=== PATIENT | male | born 1950 | race Caucasian/White ===

== ENCOUNTER 2019-01-10 02:35 | Outpatient (CLI) | payer MEDICARE, OTHER, SELFPAY ==
[2019-01-10 11:24] LABS: Anion Gap 9.6 mmol/L (3-11); BUN 15 mg/dL (7-18); CO2 26.4 mmol/L (21.0-32.0); CREATININE 0.92 mg/dL (0.70-1.30); Calcium 9.1 mg/dL (8.5-10.1); Chloride 105 mmol/L (98-107); Cholesterol 238 mg/dL (50-200); Glucose 95 mg/dL (70-100); HDL Cholesterol 51 mg/dL (40-60); LDL CHOLESTEROL 149 mg/dL (<100); Potassium 4.4 mmol/L (3.5-5.1); Sodium 141 mmol/L (136-145); Triglyceride 181 mg/dL (30-150)
== END 2019-01-10 02:55 ==
PROVIDERS: PCP Family Medicine; Visit Provider Family Medicine
DX: E78.89 Other lipoprotein metabolism disorders; Z00.00 Encounter for general adult medical examination without abnormal findings
CPT/HCPCS: 36415; 80048; 80061; 83721

== ENCOUNTER 2019-01-24 10:23 | Outpatient (CLI) | payer MEDICARE, OTHER, SELFPAY ==
--- NOTE | 2019-01-24 10:10 | DI.RAD_ITS ---
SYMPTOMS/DIAGNOSIS: PAIN POSTERIOR TO HIP LUMBAR SPINE: AP and lateral projections are provided. There is some straightening of the normal lumbar lordosis. The vertebral bodies appear intact. There is some narrowing of the L 2 - 3, L 3 - 4 and L 4 - 5 disc interspace. Mild associated degenerative bony changes are apparent. The pedicle, spinous and transverse processes are intact. The sacrum and sacroiliac joints are well maintained. SUMMARY: Findings consistent with degenerative disc disease and DJD.
== END 2019-01-24 10:43 ==
PROVIDERS: PCP Family Medicine; Referring Provider Family Medicine; Visit Provider Orthopaedic Surgery
DX: M79.604 Pain in right leg (principal); M51.17 Intervertebral disc disorders with radiculopathy, lumbosacral region; M54.9 Dorsalgia, unspecified
CPT/HCPCS: 99212; 99213; 72100

== ENCOUNTER 2020-09-28 02:48 | Outpatient (CLI) | payer MEDICARE, OTHER, SELFPAY ==
[2020-09-28 13:16] LABS: Calculated LDL 174 mg/dL (<100); Cholesterol 272 mg/dL (<200); HDL Cholesterol 52 mg/dL (40-60); Triglyceride 233 mg/dL (<150)
[2020-09-28 17:24] LABS: PSA, Screening 1.5 ng/mL (0.0-6.5)
== END 2020-09-28 03:08 ==
PROVIDERS: PCP Family Medicine; Visit Provider Family Medicine
DX: I10 Essential (primary) hypertension (principal); Z12.5 Encounter for screening for malignant neoplasm of prostate; N40.0 Benign prostatic hyperplasia without lower urinary tract symptoms; Z13.6 Encounter for screening for cardiovascular disorders; Z00.00 Encounter for general adult medical examination without abnormal findings
CPT/HCPCS: 36415; 80061; 84153

== ENCOUNTER 2021-09-02 17:41 | Outpatient (REF) | payer MEDICARE, OTHER, SELFPAY ==
[2021-09-02 18:50] LABS: Bilirubin Negative (Negative); Blood Negative (Negative); Clarity Clear (Clear); Glucose Negative (Negative); Ketones Negative (Negative); Leukocyte Esterase Negative (Negative); Nitrite Negative (Negative); Urobilinogen 0.2 EU/dL (Up TO 0.2)
== END 2021-09-02 17:42 | disposition home or self-care (01) ==
LOC: NCHCN 17:41
PROVIDERS: Physician Assistant; Visit Provider Internal Medicine Cardiovascular Disease
DX: R39.89 Other symptoms and signs involving the genitourinary system (principal)
CPT/HCPCS: 81003

== ENCOUNTER 2022-06-16 18:44 | Emergency (ER) | payer MEDICARE, OTHER, SELFPAY ==
[2022-06-16 19:03] VITALS: BP 174/84; PULSE 63; RESP 16; TEMP 36.5; O2SAT 100
--- NOTE | 2022-06-16 19:30 | DI.CT_ITS ---
Exam(s) CT ABDOMEN PELVIS W EXAM: CT ABDOMEN PELVIS W CLINICAL HISTORY: pain LLQ 4 days. TECHNIQUE: Imaging Protocol: Axial computed tomography images with coronal and sagittal reformatted images were created and reviewed CONTRAST MATERIAL: Intravenous: Omnipaque 100cc Oral: None COMPARISON: No exams were available for comparison FINDINGS: VISUALIZED LUNG BASES: No nodules nor pleural effusions evident. ABDOMEN: There is no ascites. LIVER: There are no focal hepatic lesions evident. No dilated intrahepatic ducts. GALLBLADDER/BILIARY: No obvious gallbladder pathology. CBD is not dilated. PANCREAS: No evidence of pancreatic mass nor dilatation of the pancreatic duct. SPLEEN: Spleen is not enlarged. No obvious intrasplenic lesions. Splenic and portal veins are paten t. ADRENALS: There are no significant adrenal masses. KIDNEYS:There is a large cyst in the inferior pole of the left kidney which measures 8 cm x 8 cm. Th is is a simple benign cyst. A smaller cyst in the anterior cortex of the left kidney measures 1.3 x 1.4 cm. There is a small cyst in the lateral cortex of the opposite-right kidney which measures 1.2 x 1.2 cm. No solid renal masses. No calculi. No hydronephrosis.. ABDOMINAL AORTA: The inferior abdominal aortic is atherosclerotic but not grossly enlarged. No signi ficant arterial megaly of the common iliac arteries. There is anatomic variant here. Instead of a c eliac artery trunk there are 2 adjacent arteries coming off of the aorta at this level specifically t he splenic artery and the common hepatic artery, these to the left and right, respectively. There is a normal appearing superior mesenteric artery coming off the anterior abdominal aorta just below thi s level. The lower abdominal aorta is atherosclerotic. There is no significant plaque at the origin of the renal arteries and the inferior mesenteric artery is patent. No significant tight stenosis a t the level of the aortic bifurcation. LYMPH NODES:There is no retroperitoneal nor paraaortic adenopathy. ABDOMINAL WALL: No evidence of significant anterior abdominal wall nor inguinal hernia. GI: There is no evidence of bowel obstruction, free air, nor abscess. PELVIS: GI: There are multiple calcified appendicoliths within the lumen of the non dilated appendix. No ev idence of acute appendicitis at this time.No evidence of sigmoid diverticulitis. LYMPH NODES: There is no intrapelvic nor inguinal adenopathy. REPRODUCTIVE: Prostate not enlarged. Seminal vesicles unremarkable. URINARY BLADDER: Wall of the urinary bladder is uniformly thickened. No associated diverticuli in th e bladder. No calculi. No obvious masses. OSSEOUS: No significant osseous lesions. Multilevel disc space narrowing in the lumbar spine, most prominent at L4-5 level. IMPRESSION: 1. The wall of the urinary bladder is uniformly thickened, either due to cystitis or chronic obstruct ion. There are no diverticuli. No bladder wall masses evident and no intravesicular calculi. 2. There are benign cysts in both kidneys. The largest is in the left kidney and measures 8 cm. The re are no solid renal masses. No renal calculi. No hydronephrosis. 3. Multiple calcifications in the appendix but no evidence of acute appendicitis at this time. Also no sigmoid diverticulitis. 4. Other findings as above. RADIATION DOSE DELIVERED: 723.36mGy.cm Total DLP DATA REPOSITORY: All CT scans at this facility are submitted to the National Radiology Data Registry (NRDR) Dose Index Registry (DIR) with the [employer] (ACR). RADIATION OPTIMIZATION: All CT scans at this facility use at least one of these dose optimization te chniques: automated exposure control; mA and/or kV adjustment per patient size (includes targeted exa ms where dose is matched to clinical indication); or iterative reconstruction.
--- NOTE | 2022-06-16 19:33 | ED.GENADUL_ITS ---
Discharge Plan Disposition Patient Disposition: STILL A PATIENT Condition: Serious Discharge Details Chief Complaint: Abd Prob Primary Care Provider: Sherine Deleon ED Provider: Sky Juan Home Meds and New Rx's Prescriptions: No Action omeprazole 20 mg capsule,delayed release(DR/EC) 20 mg PO DAILY Qty: 90 3RF terazosin 1 mg capsule 1 mg PO DAILY Qty: 90 3RF Rx Instructions: 04-02-21 replaces doxazosin/ take one capsule at bedtime benzonatate [Tessalon Perles] 100 mg capsule 100 mg PO TID PRN (Reason: cough) Qty: 14 0RF latanoprost [Xalatan] 2.5 ML drops 1 drp OU DAILY mupirocin 2 % ointment 1 applic topical BID Qty: 15 2RF Medical Decision Making 1999 -- 71-year-old male with history of hypertension, here with left lower quadrant abdominal pain over the past 5 days. Pain improved now but tender left lower quadrant. Patient is hypertensive on arrival. Concern for acute diverticulitis versus other acute surgical pathology. Plan to obtain CT of the abdomen pelvis. Lab Data Lab results reviewed: Yes I reviewed the patient's lab results. Labs: Laboratory Tests Range/Units 06/16/22 06/16/22 19:55 19:55 WBC (4.4-10.8) 10^3/uL 4.90 RBC (4.36-5.78) 10^6/uL 4.50 Hgb (13.5-17.5) g/dL 14.0 Hct (40.0-50.0) % 39.9 L MCV (80-95) fL 89 MCH (27.0-33.0) pg 31.1 MCHC (32.0-36.0) % 35.1 RDW (11.8-14.1) % 12.1 Plt Count (130-400) 10^3/uL 203 MPV (8.0-11.0) fL 9.4 Immature Gran % 0.4 Neutrophils % 52.7 Lymphocytes % 30.4 Monocytes % 14.1 Eosinophils % 1.8 Basophils % 0.6 Nucleated RBC % (0.0-0.3) % 0.0 Absolute Neutrophils (1.2-6.7) 10^3/uL 2.58 Absolute Lymphocytes (1.2-3.4) 10^3/uL 1.49 Absolute Monocytes (0.1-0.8) 10^3/uL 0.69 Absolute Eosinophils (0.0-0.7) 10^3/uL 0.09 Absolute Basophils (0.0-0.2) 10^3/uL 0.03 Sodium (136-145) mmol/L 141 Potassium (3.5-5.1) mmol/L 4.0 Chloride (98-107) mmol/L 105 Carbon Dioxide (21.0-32.0) mmol/L 29.0 Anion Gap (3-11) mmol/L 7.0 BUN (7-18) mg/dL 16 Creatinine (0.70-1.30) mg/dL 0.9 Estimated GFR/1.73 m2 (mL/min/1.73m2) >= 60.00 Glucose (74-106) mg/dL 88 Calcium (8.5-10.1) mg/dL 8.8 Total Bilirubin (0.2-1.0) mg/dL 1.0 AST (15-37) U/L 20 ALT (16-63) U/L 29 Alkaline Phosphatase (46-116) U/L 60 Total Protein (6.4-8.2) g/dL 7.1 Albumin (3.4-5.0) g/dL 4.0 Lipase (73-393) U/L 123 HPI General Mode of arrival: ambulatory . Date/Time Provider Initiated Documentation: 06/16/22 19:31 . Limitations to Documentation: no limitations . Information obtained by: patient . HPI Narrative: 31-year-old male presents with chief complaint of abdominal pain. Patient has abdominal pain started 4 days ago and has persisted. Pain occurs daily. Pain does seem to wax and wane. No modifiers. Pain localized to his left abdomen. No associated diarrhea. No bright red blood per rectum. Patient does note dark stool but no black stool. No associated fever. No urinary symptoms. Related Data Home Medications Medication Instructions Recorded Confirmed latanoprost 0.005 % eye drops 1 drp OU DAILY 01/21/13 06/16/22 (Xalatan) terazosin 1 mg capsule 1 mg PO DAILY #90 caps 06/14/21 06/16/22 mupirocin 2 % topical ointment 1 applic topical BID #15 grams 08/19/21 03/17/22 omeprazole 20 mg capsule,delayed 20 mg PO DAILY #90 tab-caps 09/10/21 06/16/22 release benzonatate 100 mg capsule 100 mg PO TID PRN cough #14 caps 03/17/22 03/17/22 (Kong Millard) Previous Rx's Medication Instructions Recorded terazosin 1 mg capsule 1 mg PO DAILY #90 caps 06/14/21 mupirocin 2 % topical ointment 1 applic topical BID #15 grams 08/19/21 omeprazole 20 mg capsule,delayed 20 mg PO DAILY #90 tab-caps 09/10/21 release benzonatate 100 mg capsule 100 mg PO TID PRN cough #14 caps 03/17/22 (Kong Millard) Allergies Allergy/AdvReac Type Severity Reaction Status Date / Time adhesive Allergy Mild Verified 06/16/22 19:08 celecoxib [From Celebrex] Allergy Mild Verified 06/16/22 19:08 benzoin Allergy Unknown Verified 06/16/22 19:08 General Stated Complaint: Abd Prob GARRETT: 3 Review of Systems All systems reviewed & are unremarkable except as noted in HPI and below Constitutional Constitutional: Denies fever(s) Gastrointestinal Gastrointestinal: Reports as per HPI Genitourinary Genitourinary: Denies hematuria, Denies genital pain, Denies dysuria, Denies scrotal swelling and Denies testicular pain PFSH All Active Problems Dry skin dermatitis (Acute) Hyperlipidemia (Acute) History of skin cancer (Acute) Essential hypertension (Acute) Cyst (Acute) Back strain (Acute) Benign prostatic hyperplasia (Acute) () Gastroesophageal reflux disease with esophagitis (Acute 06/18/12) [place] [facility] [place] (Ac[place] Dr. Farrell ([place]) Surgical History History of arthroscopy of knee History of spinal surgery Status post hernia repair Family History Mother , 88 Diabetes Father , 92 Alzheimer disease Neoplasm PROSTATE Sister No problems noted. Maternal Grandfather No problems noted. Paternal Grandfather No problems noted. Maternal Grandmother No problems noted. Paternal Grandmother No problems noted. Brother , 73 Epilepsy Essential hypertension Depression Son No problems noted. Son Asthma Daughter Asthma MILD Social History Smoking/Tobacco Use Status: Never Second Hand Exposure: No Smoking risk assessment performed?: Yes Alcohol Intake: current Alcohol Intake frequency: 0-2 drinks per day Alcohol type: wine Drug use: Never Substance use type: does not use Details: Wine every night - roughly 4oz. Household members: spouse Housing: house Communication Needs: None Do you need help understanding health information?: Never Pets and animals: No Sexually active: Yes Do you think of yourself as: straight/heterosexual Current gender identity: male What is your relationship status?: How often do you talk on the phone with friends or family?: once per week How often do you get together with friends or relatives?: decline to answer How often do you attend anglican or rastafarian services?: 4 or more times per year Do you belong to any clubs or organized social groups?: no Panel score (0-1 are the most socially isolated patients): 2 Bharti/Moravian: Presbyterian Special bharti needs: No Seatbelt use: always Helmet use: Yes Helmet use: sometimes Drive intox or ride w/intox truck driver salesperson: No Do you feel safe at home: Yes Do you feel safe in your relationship?: Yes Exam Const General: cooperative and no acute distress HENMT Mouth: moist mucous membranes Eyes Conjunctivae: normal conjunctivae Sclera: normal sclerae EOM: EOM intact bilaterally Neck Neck: trachea midline and supple Resp Auscultation: clear to auscultation bilaterally, no rales, no rhonchi and no wheezes Cardio Jugular venous pressure: no JVD Rate: regular rate and not tachycardic Rhythm: regular rhythm GI Palpation: not firm, no guarding, no masses, not rigid and tender in the LLQ Skin General skin exam: no rashes or lesions noted Neuro General: patient alert, patient awake, patient oriented x3 and tone normal Extrem General: no edema Psych Appearance: grossly normal Mental Status: mental status grossly normal Speech and Movement: speech and movement normal Course Vital Signs Vital signs: Vital Signs Temperature 36.5 C 06/16/22 19:03 Pulse 63 06/16/22 19:03 Respiratory Rate 16 06/16/22 19:03 Blood Pressure 174/84 H 06/16/22 19:03 Pulse Oximetry 100 06/16/22 19:03 Temperature 36.5 C 06/16/22 19:03 Temperature Source Skin 06/16/22 19:03 Pulse 63 06/16/22 19:03 Respiratory Rate 16 06/16/22 19:03 Respiratory Effort Non-Labored 06/16/22 19:12 Blood Pressure 174/84 H 06/16/22 19:03 Blood Pressure Position Sitting 06/16/22 19:03 Pulse Oximetry 100 06/16/22 19:03 Oxygen Delivery Method Room Air 06/16/22 19:03 Oxygen Flow Rate 0 06/16/22 19:03 Pain Level 0 06/16/22 19:12 Comment 06/16/22 19:03 PAWSS Have you Been Recently Intoxicated or Drunk Within the Last 30 days?: No Have you Ever Experienced Previous Episodes of Alcohol Withdrawal?: No Have you ever Experienced Withdrawal Seizures?: No Have you ever Experienced Delirium Tremens(DT)s?: No Have you ever undergone Alcohol Rehabilitation Treatment (i.e, inpt ot outpatient treatment programs)?: No Have you ever Experienced Blackouts?: No Have you ever Combined Alcohol with other Downers within the last 90 days?: No Have you ever Combined Alcohol with any other Substance of Abuse during the last 90 days?: No Positive Blood Alcohol level on Presentation? [PCS.BAL]: No Evidence of Increased Autonomic Activity (i.e. HR>120, tremor, sweating, agitation, nausea)?: No Result: 0
[2022-06-16 20:03] LABS: Abs Immature Grans 0.02 10^3/uL (0.0-0.06); Absolute Basophil Count 0.03 10^3/uL (0.0-0.2); Absolute Eosinophil Count 0.09 10^3/uL (0.0-0.7); Absolute Lymphocyte Count 1.49 10^3/uL (1.2-3.4); Absolute Monocyte Count 0.69 10^3/uL (0.1-0.8); Absolute Neutrophil Count 2.58 10^3/uL (1.2-6.7); Basophils % 0.6; Eosinophils % 1.8; HCT 39.9 % (40.0-50.0); Immature Grans % 0.4; Lymphocytes % 30.4; MCH 31.1 pg (27.0-33.0); MCHC 35.1 % (32.0-36.0); MCV 89 fL (80-95); MPV 9.4 fL (8.0-11.0); Monocytes % 14.1; Neutrophils % 52.7; Platelet Count 203 10^3/uL (130-400); RDW 12.1 % (11.8-14.1); RDW-SD 39.7 fL
[2022-06-16 20:23] LABS: ALT 29 U/L (16-63); AST 20 U/L (15-37); Alkaline Phosphatase 60 U/L (46-116); BUN 16 mg/dL (7-18); CREATININE 0.9 mg/dL (0.70-1.30); Calcium 8.8 mg/dL (8.5-10.1); Chloride 105 mmol/L (98-107); Glucose 88 mg/dL (74-106); Lipase 123 U/L (73-393); Sodium 141 mmol/L (136-145); Total Protein 7.1 g/dL (6.4-8.2)
[2022-06-16] MEDS: Omnipaque 350 MG/ML 100 ML BTL IJ (20:27)
--- NOTE | 2022-06-16 20:46 | DI.VRAD_ITS ---
PROCEDURE INFORMATION: Exam: CT Abdomen And Pelvis With Contrast Exam date and time: 06/16/2022 8:20 PM Age: 71 years old Clinical indication: Other: Llq pain x 4 days TECHNIQUE: Imaging protocol: Computed tomography of the abdomen and pelvis with contrast. Contrast material: OMNI 350; Contrast volume: 100 ml; Contrast route: INTRAVENOUS (IV); COMPARISON: CR XR lumbar spine AP, LAT 01/24/2019 10:19 AM FINDINGS: Liver: Normal. Gallbladder and bile ducts: Normal. Pancreas: Normal. Spleen: Normal. Adrenal glands: Normal. No mass. Kidneys and ureters: Bilateral simple renal cysts, for which no further evaluation necessary. Stomach and bowel: Colonic diverticulosis. Appendix: Appendix normal. Intraperitoneal space: Unremarkable. No free air. No significant fluid collection. Vasculature: Atherosclerotic disease of the abdominal aorta and iliac arteries. Phleboliths within the pelvis. Lymph nodes: Unremarkable. No enlarged lymph nodes. Urinary bladder: Mild urinary bladder wall thickening, possibly mild cystitis. Reproductive: Prostate gland is mildly enlarged, measuring approximately 3.9 cm in AP diameter. Bones/joints: No acute abnormality. Soft tissues: Small fat and fluid containing right inguinal hernia. IMPRESSION: Mild urinary bladder wall thickening, possibly mild cystitis. Dictated and Authenticated by: Elijah Fitzpatrick MD. Ordering:ANDRIA Swanson MD
[2022-06-16 20:49] LABS: Bilirubin Negative (Negative); Blood Negative (Negative); Clarity Clear (Clear); Glucose Negative (Negative); Ketones Negative (Negative); Leukocyte Esterase Negative (Negative); Nitrite Negative (Negative); Urobilinogen 0.2 EU/dL (Up TO 0.2)
[2022-06-16 20:57] VITALS: BP 185/84; PULSE 60; RESP 16; O2SAT 98
--- NOTE | 2022-06-16 22:09 | W.EDPROG ---
Date of service: 06/16/22 Time of Service: 22:[address] negative other than mild urinary bladde wall thickening, he denies any urinary symptoms so fel this is an incidental findings. He states he has no pain now and has no tenderness. States pain is worse in the morning. Discussed findings with patient and given reassuring workup feel he is stable for d/c. ADvised to f/u with pcp and return precautions given Imaging Data Radiologic Study: Attestation: I personally reviewed and interpreted this imaging study as follows: Imaging: CT Scan Radiologist's impression: IMPRESSION: Mild urinary bladder wall thickening, possibly mild cystitis Lab Data Lab results reviewed: Yes I reviewed the patient's lab results. Discharge Plan Disposition Patient Disposition: HOME Condition: Serious Discharge Details Clinical Impression: Abdominal pain Primary Care Provider: Sherine Deleon ED Provider: Sarkis Cedeño Home Meds and New Rx's Prescriptions: Continued omeprazole 20 mg capsule,delayed release(DR/EC) 20 mg PO DAILY Qty: 90 3RF terazosin 1 mg capsule 1 mg PO DAILY Qty: 90 3RF Rx Instructions: 04-02-21 replaces doxazosin/ take one capsule at bedtime benzonatate [Tessalon Perles] 100 mg capsule 100 mg PO TID PRN (Reason: cough) Qty: 14 0RF latanoprost [Xalatan] 2.5 ML drops 1 drp OU DAILY mupirocin 2 % ointment 1 applic topical BID Qty: 15 2RF Discharge Instructions Instructions: Abdominal Pain (ED) Additional Instructions: your lab work and cat scan did not show concerning findings at this time you can try taking a stool softener such as colace daily if you still have symptoms this week follow up with your primary care provider if you feel more ill, have severe worsening pain or persistent vomit return to the emergency department
[2022-06-16 22:26] VITALS: BP 170/73; PULSE 59; TEMP 36.8; O2SAT 98
== END 2022-06-16 22:25 | disposition home or self-care (01) ==
PROVIDERS: Student in an Organized Health Care Education/Training Program; Emergency Provider Emergency Medicine
DX: R10.32 Left lower quadrant pain (principal); I10 Essential (primary) hypertension; N32.89 Other specified disorders of bladder
CPT/HCPCS: 80053; 83690; 99285; 74177; 81003; 85025; 99282; J3490

== ENCOUNTER 2023-02-02 01:51 | Outpatient (CLI) | payer MEDICARE, SELFPAY ==
[2023-02-02 12:22] LABS: ALT 39 U/L (16-63); AST 22 U/L (15-37); Albumin 3.9 g/dL (3.4-5.0); Alkaline Phosphatase 61 U/L (46-116); Anion Gap 4.6 mmol/L (3-11); BUN 15 mg/dL (7-18); Bilirubin, Total 0.7 mg/dL (0.2-1.0); CO2 30.4 mmol/L (21.0-32.0); Calcium 8.9 mg/dL (8.5-10.1); Calculated LDL 164 mg/dL (<100); Chloride 106 mmol/L (98-107); Cholesterol 247 mg/dL (<200); Estimated GFR 79.47 (mL/min/1.73m2); Glucose 96 mg/dL (74-106); HDL Cholesterol 64 mg/dL (40-60); Potassium 4.2 mmol/L (3.5-5.1); Sodium 141 mmol/L (136-145); Triglyceride 95 mg/dL (<150)
== END 2023-02-02 01:52 | disposition home or self-care (01) ==
LOC: LOS 01:51
PROVIDERS: PCP Nurse Practitioner Family; Visit Provider Nurse Practitioner Family
DX: E78.5 Hyperlipidemia, unspecified (principal); I10 Essential (primary) hypertension
CPT/HCPCS: 36415; 80053; 80061

== ENCOUNTER 2023-08-17 04:17 | Outpatient (CLI) | payer MEDICARE, SELFPAY ==
[2023-08-17 12:54] LABS: Calculated LDL 152 mg/dL (<100); Cholesterol 235 mg/dL (<200); HDL Cholesterol 59 mg/dL (40-60); Triglyceride 124 mg/dL (<150)
== END 2023-08-17 04:18 | disposition home or self-care (01) ==
LOC: LOS 04:19
PROVIDERS: PCP Nurse Practitioner Family; Visit Provider Nurse Practitioner Family
DX: E78.5 Hyperlipidemia, unspecified (principal)
CPT/HCPCS: 36415; 80061

== ENCOUNTER 2023-12-14 01:41 | Outpatient (CLI) | payer MEDICARE, SELFPAY ==
[2023-12-14 12:14] LABS: ALT 37 U/L (16-63); AST 21 U/L (15-37); Alkaline Phosphatase 66 U/L (46-116); Anion Gap 4.4 mmol/L (3-11); BUN 15 mg/dL (7-18); Bilirubin, Total 0.6 mg/dL (0.2-1.0); CO2 32.6 mmol/L (21.0-32.0); Calcium 9.2 mg/dL (8.5-10.1); Calculated LDL 155 mg/dL (<100); Chloride 106 mmol/L (98-107); Cholesterol 241 mg/dL (<200); Estimated GFR 78.98 (mL/min/1.73m2); Glucose 102 mg/dL (74-106); HDL Cholesterol 67 mg/dL (40-60); Potassium 4.7 mmol/L (3.5-5.1); Sodium 143 mmol/L (136-145); Total Protein 7.3 g/dL (6.4-8.2); Triglyceride 95 mg/dL (<150)
== END 2023-12-14 01:42 | disposition home or self-care (01) ==
LOC: LBO 01:41
PROVIDERS: PCP Nurse Practitioner Family; Visit Provider Nurse Practitioner Family
DX: E78.5 Hyperlipidemia, unspecified (principal)
CPT/HCPCS: 36415; 80053; 80061

== ENCOUNTER 2024-01-01 09:51 | Day surgery (SDC) | payer MEDICARE, SELFPAY ==
--- NOTE | 2023-12-31 07:03 | W.PM.DSUDISC ---
Date of service: 01/01/24 Time of Service: 11:54 Discharge Plan Disposition Patient Disposition: Home Condition: Good Discharge Details Reason For Visit: screening colonoscopy Attending Provider: George Jones Primary Care Provider: Janusz Tom Home Meds and New Rx's Prescriptions: Continued triamcinolone acetonide 0.025 % cream 1 applic topical BID PRN (Reason: dermatitis) Qty: 15 0RF Rx Instructions: for no longer than 2 weeks mupirocin 2 % ointment 1 applic topical TID Qty: 15 0RF latanoprost [Xalatan] 2.5 ML drops 1 drp OU DAILY nystatin 100,000 unit/gram cream 1 applic Topical DAILY PRN (Reason: yeast dermatitis) Qty: 1 0RF terazosin 1 mg capsule 1 mg PO DAILY Qty: 90 3RF Rx Instructions: 04-02-21 replaces doxazosin/ take one capsule at bedtime omeprazole 20 mg capsule,delayed release(DR/EC) 20 mg PO DAILY Qty: 90 3RF Discontinued bisacodyl [Dulcolax (bisacodyl)] 5 mg tablet,delayed release (DR/EC) 5 mg PO ONCE Qty: 4 0RF Rx Instructions: Take per colonoscopy instructions provided by ordering providers office polyethylene glycol 3350 17 gram/dose powder 17 g PO ONCE Qty: 238 0RF Rx Instructions: Take per colonoscopy instructions provided by ordering providers office Discharge Instructions Instructions: Diverticulosis (GEN), Colorectal Polyps (GEN), Diverticulosis Diet (GEN) Additional Instructions: Jesus, we were able to complete your endoscopy today without any difficulty. You do have some diverticulosis. Diverticula are weak spots in the muscular part of the colon wall. They can get infected and inflamed, and on those occasions, patients are typically treated with antibiotics. Hopefully years never really bother you. I did attach a little information here regarding diverticular disease, basic management principles. I also found 1 polyp. It was medium in size, and I removed it completely. When I have the pathology report regarding the nature of the polyp, I will be in touch with recommendations for the timing of your next colonoscopy. If you have any questions in the meantime, please do not hesitate to call. 1. If tolerated, consume a soft, low fiber diet for 1-2 days. 2[address] Do not drive, drink alcohol, operate machinery, make critical decisions, or do activities that require coordination or balance for 24 hours. 3. Because air was put into your colon during the procedure, expelling air from your rectum (passing gas or farting) is normal. 4. You may not have a bowel movement for 1-3 days because of the colonoscopy prep. This is normal. 5. Go directly to the emergency room if you notice any of the following: Develop chills (warm to touch), or if you have a thermometer and your temperature is above 101 Difficulty breathing or difficultly swallowing Persistent vomiting Severe abdominal pain, other than gas cramps Severe chest pain Black, tarry stools Any bleeding ? exceeding one tablespoon 6. Call your physician if the site where your intravenous was started becomes red, swollen, painful, and warm to touch. 7. Your physician has reviewed your pre-procedure medications. Please continue to take those medications as previously ordered. You will be given specific information/education regarding any changes to your medications before leaving. Activity:: Activity as Tolerated Diet:: As Tolerated Discharge Orders Discharge Orders: Discharge Order (Routine); Ordered 12/31/23 Ordered By: George Jones DS: Diagnosis Discharge Diagnosis (1) Encounter for screening colonoscopy: Status: Acute Asessment and Plan: Follow-up on polypectomy results
--- NOTE | 2023-12-31 07:04 | COLE_ITS ---
Date of service: 01/01/24 Time of Service: 11:56 Colonoscopy Report Date of procedure: 01/01/24 Pre-op diagnosis general: screening colonoscopy Post-op diagnosis procedure note: other (Diverticulosis, colon polyp) Procedure: colonoscopy with polypectomy Surgeon: George Jones Anesthesia Type: General:No Airway Estimated blood loss (mL): 5 Pathology: other (0.5 cm polyp at 20 cm) Complications: None Disposition: same day Indications: Jesus is 73 years old, he is here for his next colonoscopy. Prep: Miralax/Dulcolax Procedure Start Time: :11 Procedure End Time: : Retraction Time: 10 Findings: 0.5 cm pedunculated polyp at 20 cm from the anus. Sigmoid diverticulosis. Procedure Description: After the induction of monitored anesthetic care, and with the patient in left lateral decubitus position, I began by performing an external anorectal exam.? Perineum and skin were normal, as was the anal verge.? There was no evidence of external hemorrhoids.? Next, I performed a digital rectal exam.? I did not appreciate any abnormal findings.? Next, I advanced a colonoscope into the rectal vault.? I performed retroflexion.? This was normal.? Using insufflation, I then advanced the colonoscope beyond the rectal folds and into the sigmoid colon before advancing towards the cecum.? There is widemouth sigmoid diverticulosis.? The scope was noted to be in the cecum by identification of the ileocecal valve and appendiceal orifice.? I then began withdrawing the colonoscope using repeated irrigation as necessary for full evaluation of the colonic mucosa. Around 20 cm from the anal verge was a 0.5 cm pedunculated polyp. This was removed with cold snare polypectomy. There were no complications once the scope was withdrawn to the level of the rectum, great care was taken to examine portions of the rectal folds.? Finally, the scope was withdrawn and the patient was brought to the same-day surgery recovery unit as the anesthetic wore off. ?The findings and instructions were shared with the patient prior to discharge. [place] Bowel Prep [place] Bowel Prep Right Colon: 3 Left Colon: 3 Transverse Colon: 3 Total Score: 9
[2024-01-01 10:07] VITALS: BP 147/80; PULSE 70; RESP 16; TEMP 36.3; O2SAT 98
[2024-01-01] MEDS: Lactated Ringers 1,000 ML 80 ML IV (10:17)
--- NOTE | 2024-01-01 10:27 | ANES.PREOP_ITS ---
General Info Date of Service Date Performed: 01/01/24 Height: 5 ft 9 in Weight: 70.4 kg Body Mass Index (BMI): 22.8 Surgical Procedure: Operation Date: 01/01/24 11:20 Proposed Procedure Side Surgeon jeffrey Jones MD Meds Allergies and Home Medications Allergies Allergy/AdvReac Type Severity Reaction Status Date / Time celecoxib [From Celebrex] Allergy Mild Dizziness/L Verified 01/01/24 10:07 ighthead benzoin Allergy Unknown Other (See Verified 01/01/24 10:07 Comment) Home Medication Medication Instructions Recorded latanoprost 0.005 % eye drops 1 drp OU DAILY 01/21/13 (Xalatan) nystatin 100,000 unit/gram topical 1 applic topical DAILY PRN yeast 02/07/23 cream dermatitis #1 g triamcinolone acetonide 0.025 % 1 applic topical BID PRN 03/22/23 topical cream dermatitis #15 grams terazosin 1 mg capsule 1 mg PO DAILY #90 caps 08/11/23 mupirocin 2 % topical ointment 1 applic topical TID #15 grams 08/17/23 omeprazole 20 mg capsule,delayed 20 mg PO DAILY #90 tab-caps 09/22/23 release Current Visit Medications: Current Medications Generic Name Dose Route Start Last Admin Trade Name Freq PRN Reason Stop Dose Admin Hyoscyamine Sulfate 0.125 mg 12/31/23 07:05 Hyoscyamine 0.125 Mg Sl/Oral/Chew SL 01/30/24 07:04 DIRECTED PRN Ringer's Solution 1,000 mls @ 80 mls/hr 01/01/24 06:00 01/01/24 10:17 IV 01/01/24 23:59 80 mls/hr INFUSION JANIE Administration IV Miscellaneous Supplies 1 each 01/01/24 06:00 Iv Access IV 01/01/24 23:59 DIRECTED JANIE Ondansetron HCl 4 mg 12/31/23 07:05 Ondansetron 4 Mg/2 Ml Vial IVP 01/30/24 07:04 Q4H PRN PRN Nausea / Vomiting Sodium Chloride 0 ml 01/01/24 06:00 Normal Saline Flush 10 Ml Syr IV 01/01/24 23:59 PRN PRN Sodium Chloride 0 ml 01/01/24 06:00 Normal Saline 10 Ml Vial IJ 01/01/24 23:59 DIRECTED PRN Sterile Water 0 ml 01/01/24 06:00 Water,Injection,Sterile 10 Ml Vial IJ 01/01/24 23:59 DIRECTED PRN PFSH Active Problems Active Problems: Problem Status Onset Code Encounter for screening colonoscopy Z12.11 Dry skin dermatitis L85.3 Hyperlipidemia E78.5 History of skin cancer Z85.828 Essential hypertension I10 Cyst Back strain S39.012A Benign prostatic hyperplasia N40.0 Gastroesophageal reflux disease with esophagitis 06/18/12 K21.0 Glaucoma H40.9 Surgical History Surgical History History of arthroscopy of knee History of spinal surgery Status post hernia repair Tobacco Smoking/Tobacco Use Status: Never Passive smoking exposure: Yes Second hand exposure: No Alcohol Alcohol Intake: current Alcohol intake frequency: 3 or more drinks per day Alcohol type: wine Substance Use Substance use: Never Substance use type: does not use Vital Signs and Lab Results Vital Signs Most Recent Vital Signs in EMR: Most Recent Vital Signs Temp Pulse Resp BP Pulse Ox 36.3 C L 70 16 147/80 H 98 01/01/24 10:07 01/01/24 10:07 01/01/24 10:07 01/01/24 10:07 01/01/24 10:07 Lab Results Blood Type / Crossmatch: No Data to Display Complete Blood Count: No Data to Display Complete Metabolic Panel: Sodium 143 mmol/L (136-145) 12/14/23 11:35 Potassium 4.7 mmol/L (3.5-5.1) 12/14/23 11:35 Chloride 106 mmol/L (98-107) 12/14/23 11:35 Carbon Dioxide 32.6 mmol/L (21.0-32.0) H 12/14/23 11:35 BUN 15 mg/dL (7-18) 12/14/23 11:35 Creatinine 1.0 mg/dL (0.70-1.30) 12/14/23 11:35 Est GFR (CKD-EPI 2020) 78.98 (mL/min/1.73m2) 12/14/23 11:35 Calcium 9.2 mg/dL (8.5-10.1) 12/14/23 11:35 Albumin 4.0 g/dL (3.4-5.0) 12/14/23 11:35 Glucose 102 mg/dL (74-106) 12/14/23 11:35 Liver Function Panel: Alanine Aminotransferase (ALT/SGPT) 37 U/L (16-63) 12/14/23 11: 35 Aspartate Amino Transf (AST/SGOT) 21 U/L (15-37) 12/14/23 11:35 Coagulation Panel: No Data to Display Cardiac Panel: No Data to Display Arterial Blood Gas: No Data to Display Venous Blood Gas: No Data to Display Pancreas Panel: No Data to Display Thyroid Panel: No Data to Display Infectious Disease: No Data to Display Blood Cultures: No Data to Display Toxicology Panel: No Data to Display Anesthesia Assessment and Plan Anesthesia History Personal History: No History of Anesthesia Complications Family History: No Family History of Anesthesia Complications Exercise Tolerance Exercise Tolerance: Metabolic Equivalents>4 Pertinent Negatives Pertinent Negatives: No Symptoms of GERD, No Major Cardiovascular Symptoms or Complaints and No Major Pulmonary Symptoms or Complaints Cardiac & Pulmonary Exam Cardiac Exam: Normal S1/S2 Heart Sounds Pulmonary Exam: Clear Bilateral Breath Sounds Implantable Cardiac Device Does patient have a Pacemaker or an ICD?: No Airway Exam Known Difficult Airway: No Mallampati Class: 1 Mouth Opening: Normal (> 3cm) Thyromental Distance: Greater than 3 cm Neck Range of Motion: Full ROM Neck Circumference: Normal Teeth Condition: Normal Dentition ASA Classification ASA Score: ASA 2 Emergency Case?: No NPO Status NPO Status: NPO Clears >2 hours, Solids >8 hours Anesthesia Plan Resuscitation Status: Full Code Anesthesia Technique: General Anesthesia Airway Planned: Natural Airway Monitors Used: Standard Monitors
[2024-01-01 10:29] VITALS: BMI 22.8
--- NOTE | 2024-01-01 11:12 | BOWEL_PTH ---
PATIENT: Patrick Miguel LOC: [facility] U#:[id number] AGE/SX: 73/M ROOM: RE01/01/[address]: George Jones MD : 1950 BED: DIS: 01/01/2024 SPEC #: [id number] RECD: 01/01/24 12:44 STATUS: ANA LUISA REQ #: [id number] TARYN: 01/01/24 11:[address]: George Jones DEPT: Surgical Specimen RECD BY: Melodie Saeed ENTERED: 01/01/24 12:45 SP TYPE: Bowel OTHR DR: Janusz Montalvo, ROSA Tissues: 1 - BIOPSY BOWEL Procedures: GROSS AND MICRO LEVEL 4 Comments: [id number]
[2024-01-01 11:36] VITALS: BP 102/64; PULSE 69; RESP 16; TEMP 36.4; O2SAT 95
--- NOTE | 2024-01-01 11:48 | W.ANESPOSTOP ---
Postoperative Evaluation Date, Time and Location Date Performed: 01/01/24 Time Performed: 11:36 Patient Location: Day Surgery Unit Vital Signs Most Recent Imported Vital Signs: Most Recent Vital Signs Temp Pulse Resp BP Pulse Ox 36.4 C L 69 16 102/64 95 01/01/24 11:36 01/01/24 11:36 01/01/24 11:36 01/01/24 11:36 01/01/24 11:36 Pain Score Most Recent Pain Score: Most Recent Pain Score Pain Level 0 01/01/24 11:36 Assessment Mental Status: Awake (Alert & Oriented to Patient Baseline) Airway and Respiratory Function: Patent airway with normal (patient baseline) respiratory exam Cardiovascular Function: Hemodynamically Stable Hydration Status: Adequately Hydrated Nausea & Vomiting: No Nausea or Vomiting Pain: Pt. Denies Any Pain Peripheral Nerve Block: Patient did not receive a nerve block
[2024-01-01 11:58] VITALS: BP 126/67; PULSE 60; RESP 16; TEMP 36.6; O2SAT 98
== END 2024-01-01 12:28 | disposition home or self-care (01) ==
LOC: SUR 09:51
PROVIDERS: PCP Nurse Practitioner Family; Visit Provider Surgery
PROC: 0DJD8ZZ Inspection of Lower Intestinal Tract, Via Natural or Artificial Opening Endoscopic (ICD-10-PCS; CPT 45378; principal; 2024-01-01 11:15)
DX: Z12.11 Encounter for screening for malignant neoplasm of colon (principal); D12.5 Benign neoplasm of sigmoid colon; K57.30 Diverticulosis of large intestine without perforation or abscess without bleeding; I10 Essential (primary) hypertension; K21.00 Gastro-esophageal reflux disease with esophagitis, without bleeding
CPT/HCPCS: 45380; 88305; J2704